=== PATIENT | male | born 1990 | race Caucasian/White ===

== ENCOUNTER 2019-08-16 06:13 | Emergency (ER) | payer SELFPAY ==
[~2019-08-16] VITALS: Ht 170.2 cm; Wt 70.3 kg
[2019-08-16 06:30] VITALS: BP 125/83
--- NOTE | 2019-08-16 06:30 | NUR ---
ED Nurse Note: Pt walked into ED from home for c/o L sided flank pain onset 4 days ago, worse this morning. Pt states pain 7/10 and is dull/aching in nature and radiates to his L ribs. Pt denies any injury. Pt is aaox4, no cardiac or respiratory distress noted, ambulatory with steady gait. Will continue to monitor.
--- NOTE | 2019-08-16 07:03 | NUR ---
HAND-OFF: Report given to MIKE Gilliland and endorsed care.
[2019-08-16] MEDS ORDERED: Methocarbamol 750mg tab ORAL ONE (07:15)
--- NOTE | 2019-08-16 07:15 | NUR ---
ED Nurse Note: Report received from Araceli MCKEON. Patient resting in chair, medications given and tolerated well.
[2019-08-16] MEDS ORDERED: LIDODERM700 M1 TOPIC (07:19)
[2019-08-16] MEDS ORDERED: ROBAXIN-750750 MG PO (07:19)
[2019-08-16] MEDS ORDERED: IBUPROFEN600 MG ORAL (07:19)
[2019-08-16 07:22] VITALS: BP 125/83
--- NOTE | 2019-08-16 07:22 | NUR ---
ER DISCHARGE NOTE: Patient cleared for DC by Dr. Morales. Patient AxO x 4, VSS. Patient verbalized understanding of DC instructions. Patient ID band removed. Patient ambulates with steady gait and took all belongings.
--- NOTE | 2019-08-16 08:21 | Emergency Room Report ---
History of Present Illness General Chief Complaint: Back Pain-No Injury Source: Patient Present Illness HPI 28-year-old male presents ED for evaluation. Complaining of left-sided rib pain. Started 5 days ago. Woke up on [place] day with the pain. States he did go out for [place] and cannot recall if he fell or injured himself. Pain is dull, 6 out of 10, nonradiating. Worse with twisting and bending. Notes pain with coughing. Denies flank pain. Denies dysuria or hematuria. Denies abdominal pain. Denies nausea or vomiting. No other aggravating relieving factors. Denies any other associated symptoms Allergies: Coded Allergies: No Known Allergies (Unverified , 08/16/19) Patient History Past Medical History: none Past Surgical History: none Pertinent Family History: none Social History: Denies: smoking, alcohol use, drug use Immunizations: UTD Reviewed Nursing Documentation: PMH: Agreed; PSxH: Agreed Nursing Documentation-PMH Past Medical History: No Stated History Review of Systems All Other Systems: negative except mentioned in HPI Physical Exam Vital Signs Date Time Temp Pulse Resp B/P (MAP) Pulse Ox O2 Delivery O2 Flow Rate FiO2 08/16/19 06:26 97.7 81 22 125/83 (97) 100 Room Air Sp02 EP Interpretation: reviewed, normal General Appearance: no apparent distress, alert, GCS 15, non-toxic Head: normocephalic Eyes: bilateral eye normal inspection, bilateral eye PERRL ENT: normal ENT inspection Neck: normal inspection Respiratory: other - reproducible L anterior/midaxillary rib tenderness. no bruising. no crepitus Cardiovascular #1: normal inspection Gastrointestinal: normal inspection Rectal: deferred Genitourinary: no CVA tenderness Musculoskeletal: normal inspection Neurologic: alert, motor strength/tone normal, oriented x3, sensory intact, responsive, speech normal Psychiatric: normal inspection Skin: no rash Lymphatic: normal inspection Medical Decision Making Diagnostic Impression: Primary Impression: Chest wall muscle strain Qualified Codes: S29.011A - Strain of muscle and tendon of front wall of thorax, initial encounter ER Course Hospital Course 28 yo M presents c/o L sided rib pain Differential diagnoses include: Fracture, sprain, contusion Clinical course Patient placed on stretcher. After initial history, physical exam reveals a male in no acute distress. There is reproducible tenderness to the left anterior and left mid axillary rib cage. No bruising or crepitus. Lungs clear. Abdomen soft. No guarding or rebound. I discussed findings with patient. Likely strain. No history suggesting injury. I do not believe imaging required at this time. Patient agrees. Given meds in ED. Will discharge to home. Safe for discharge close outpatient follow-up. I will provide referrals Diagnosis - chest wall muscle strain stable and discharged to home with prescription for Motrin, robaxin, lidoderm. Followup with PMD. Return to ED if symptoms recur or worsen Last Vital Signs Date Time Temp Pulse Resp B/P (MAP) Pulse Ox O2 Delivery O2 Flow Rate FiO2 08/16/19 07:22 97.7 81 22 125/83 100 Room Air Status: improved Disposition: HOME, SELF-CARE Condition: Stable Scripts Lidocaine Patch* (Lidoderm Patch*) 1 Each Adh..patch 1 PATCH TOPIC DAILY, #7 PATCH 0 Refills Patch(es) may remain in place for up to 12 hours in any 24-hour period. Prov: Tristen Morales MD 08/16/19 Methocarbamol* (ROBAXIN-750*) 750 Mg Tablet 750 MG PO QID, #28 TAB 0 Refills Prov: Tristen Morales MD 08/16/19 Ibuprofen* (MOTRIN*) 600 Mg Tablet 600 MG ORAL Q8H PRN for For Pain, #30 TAB 0 Refills Prov: Tristen Morales MD 08/16/19 Referrals: NOT CHOSEN IPA/,REFERRING (PCP) [facility] Patient Instructions: Chest Wall Pain, [id number] Tristen Morales MD Aug 16, 2019 08:21
== END 2019-08-16 07:22 | disposition home or self-care (01) ==
LOC: EMR 06:39
DX: S29.011A Strain of muscle and tendon of front wall of thorax, initial encounter (principal); X58.XXXA Exposure to other specified factors, initial encounter; Y92.9 Unspecified place or not applicable
CPT/HCPCS: 99282